=== PATIENT | male | born 1995 | race Caucasian/White ===

== ENCOUNTER 2019-12-04 10:25 | Emergency (ER) | payer MEDICAID ==
[~2019-12-04] VITALS: Ht 167.6 cm; Wt 76.2 kg
[2019-12-04 10:27] VITALS: BP 145/114
--- NOTE | 2019-12-04 10:30 | NUR ---
24/M BIB MOTHER C/O COUGH, SORE THROAT X 3 DAYS. PATIENT STATES PAIN OF 8/10 AT THIS TIME. PATIENT POSITIONED FOR COMFORT; HOB ELEVATED; BEDRAILS UP X1; BED DOWN. ER MD MADE AWARE OF PT STATUS.
--- NOTE | 2019-12-04 10:34 | NUR ---
Sudheer givens in [facility] - 12/04/19 at 1055 by [email or web address] PT AMB TO BED 9.
--- NOTE | 2019-12-04 11:22 | NUR ---
PT TAKEN TO X RAY VIA W/C, ACCOMPANIED BY TRAINING CONSULTANT.
[2019-12-04] MEDS ORDERED: ACETAMINOPHEN EXTRA STRENGTH 500 MG TAB PO ONE (12:15)
--- NOTE | 2019-12-04 12:33 | NUR ---
Patient discharged with v/s stable. Written and verbal after care instructions given and explained. Patient alert, oriented and verbalized understanding of instructions. Ambulatory with steady gait. All questions addressed prior to discharge. ID band removed. Patient advised to follow up with PMD. Rx of PROMETHAZINE & CLARITIN-D given. Patient educated on indication of medication including possible reaction and side effects. Opportunity to ask questions provided and answered.
[2019-12-04 12:34] VITALS: BP 134/87
== END 2019-12-04 12:33 | disposition home or self-care (01) ==
LOC: MED 10:25
DX: B34.9 Viral infection, unspecified (principal)
CPT/HCPCS: 71046; 99283